=== PATIENT | female | born 1945 | race Caucasian/White ===

== ENCOUNTER → 2016-05-21 | Outpatient (CLI) | payer OTHER | LOC: BRMIMAGING 16:00 | PROVIDERS: ATTEND Physician Assistant Medical | DX: S29.9XXA Unspecified injury of thorax, initial encounter (principal); M81.0 Age-related osteoporosis without current pathological fracture ==

== ENCOUNTER → 2016-10-05 | Outpatient (CLI) | payer OTHER | LOC: BRMIMAGING 14:53 | PROVIDERS: ATTEND Physician Assistant | DX: M81.0 Age-related osteoporosis without current pathological fracture (principal) ==

== ENCOUNTER → 2017-03-17 | Outpatient (CLI) | payer OTHER | LOC: BRMIMAGING 14:43 | PROVIDERS: ATTEND Physician Assistant Surgical | DX: M11.161 Familial chondrocalcinosis, right knee (principal); M11.162 Familial chondrocalcinosis, left knee; M85.861 Other specified disorders of bone density and structure, right lower leg; M85.862 Other specified disorders of bone density and structure, left lower leg | CPT/HCPCS: 72100-PO; 73564-PO ==

== ENCOUNTER → 2017-03-25 | Outpatient (CLI) | payer OTHER | LOC: BRMIMAGING 11:25 | PROVIDERS: ATTEND Physician Assistant Medical | DX: Z12.31 Encounter for screening mammogram for malignant neoplasm of breast (principal); Z80.3 Family history of malignant neoplasm of breast ==

== ENCOUNTER → 2018-05-25 | Outpatient (CLI) | payer OTHER | LOC: BRMIMAGING 12:57 | PROVIDERS: ATTEND Physician Assistant Medical | DX: Z12.31 Encounter for screening mammogram for malignant neoplasm of breast (principal); Z80.3 Family history of malignant neoplasm of breast; Z13.820 Encounter for screening for osteoporosis; M81.0 Age-related osteoporosis without current pathological fracture ==